=== PATIENT | female | born 1940 | race Two or more races ===

== ENCOUNTER 2022-12-11 19:15 | Emergency (ER) | payer MEDICARE, OTHER ==
[~2022-12-11] VITALS: Ht 157.5 cm; Wt 61.3 kg
[2022-12-11] MEDS ORDERED: HYDROcodone-ACET 5/325MG TAB PO ONE (21:30)
[2022-12-11] MEDS ORDERED: ONDANSETRON ODT 4 MG TAB PO ONE (21:30)
[2022-12-11] MEDS ORDERED: ACE3T PO (22:00)
[2022-12-11 23:02] VITALS: BP 129/61
== END 2022-12-11 23:02 | disposition home or self-care (01) ==
LOC: ER 19:17
DX: S22.41XA Multiple fractures of ribs, right side, initial encounter for closed fracture (principal); I12.9 Hypertensive chronic kidney disease with stage 1 through stage 4 chronic kidney disease, or unspecified chronic kidney disease; E11.22 Type 2 diabetes mellitus with diabetic chronic kidney disease; N18.2 Chronic kidney disease, stage 2 (mild); F32.9 Major depressive disorder, single episode, unspecified; E78.5 Hyperlipidemia, unspecified; Z98.890 Other specified postprocedural states; Y29.XXXA Contact with blunt object, undetermined intent, initial encounter; Y93.89 Activity, other specified; Y92.89 Other specified places as the place of occurrence of the external cause; Y99.8 Other external cause status
CPT/HCPCS: 71250; 99284; Q0162